=== PATIENT | female | born 1990 | race Caucasian/White ===

== ENCOUNTER 2017-09-10 12:00 | Emergency (ER) | payer OTHER ==
[~2017-09-10] VITALS: Ht 152.4 cm; Wt 47.0 kg
[~2017-09-10 12:00] MED LIST: BCPILLS PO
[2017-09-10 12:18] VITALS: TEMP 36.9
[2017-09-10] MEDS ORDERED: PRENTAB26 PO (13:29)
[2017-09-10 13:57] LABS: BASO % 0.3 %; BASO ABS # 0.02 K/uL (0-0.2); COMPLETE YES; EOS % 0.3 %; HEMATOCRIT 36.4 % (37-47); IG% 0.3 %; LYMPH % 26.7 %; LYMPH ABS # 1.77 K/uL (1.2-3.4); MEAN CELL VOLUME 87.7 fL (80-100); MEAN CORPUSCULAR HEMOGLOBIN 29.4 pg (25-34); MEAN CORPUSCULAR HGB CONC 33.5 g/dl (32-36); MEAN PLATELET VOLUME 10.4 fL (7.4-10.4); MONO % 10.3 %; NEUT % 62.1 %; PLATELET COUNT 163 K/uL (130-400); RED BLOOD COUNT 4.15 M/uL (4.2-5.4); WHITE BLOOD COUNT 6.63 K/uL (4.8-10.8)
--- NOTE | 2017-09-10 14:09 | EMERGENCY ROOM VISIT NOTE ---
ED Visit Note First contact with patient: 13:00 CHIEF COMPLAINT: Vaginal bleeding HISTORY OF PRESENT ILLNESS: This 27-year-old female presents to the emergency Department with complaints of vaginal bleeding and cramping. She reports that she is currently 6 weeks . She began having vaginal bleeding last night and has some lower abdominal cramping and some low back pain. She does not feel dizzy, weak, or faint. There has been no sweating or loss of consciousness. She denies trauma to the abdomen, recent illnesses, or fever. She is . She does report that she had bleeding with her first as well, and they did not ever find out why. She denies any headaches, dizziness or passing out, chest pain, shortness of breath, dysuria, diarrhea, or rash. REVIEW OF SYSTEMS: A complete 10 point review of systems was reviewed with the patient with pertinent positives and negatives as per history of present illness. All else were negative. PMH: The patient is healthy; there is no significant medical or surgical history. SOCIAL HISTORY: Patient lives at home. PHYSICAL EXAM: Vital Signs: Reviewed Nurse's notes. CONSTITUTIONAL: No acute distress. Well appearing and well nourished. Alert and oriented X 4 with normal affect. HEENT: Normocephalic, atraumatic. Pupils equal, round and reactive to light, EOMI. TMs normal. Pharynx normal. NECK: Supple, full active range of motion without discomfort. RESPIRATORY: Clear to auscultation bilaterally with no wheezing, crackles, rhonchi or stridor. Equal expansion bilaterally. CARDIOVASCULAR: Regular rate and rhythm with no murmurs, rubs or gallops. Normal peripheral perfusion. No edema. GASTROINTESTINAL: Soft, nontender, nondistended. Bowel sounds present in all quadrants. GENITOURINARY/PELVIC EXAM: VULVA: No ulcers, vesicles or atrophy. VAGINA: Clear discharge, no foul odor, scant light brown/red discharge. CERVIX: Closed , nontender, no cervical motion tenderness, no retained clot or tissue within the os. UTERUS: Normal size, nontender. ADNEXA: No masses or tenderness. A nurse was present as a contractor field hauling during the examination. MUSCULOSKELETAL: Full range of motion of all joints without discomfort. INTEGUMENTARY: No rash or other significant dermatologic conditions noted. NEUROLOGIC: Cranial nerves II-XII grossly intact. No focal neurologic deficits noted. IMAGING: TRANSVAGINAL CLINICAL HISTORY: 6 weeks with vaginal bleeding and cramping. COMPARISON STUDY: No previous studies for comparison. TECHNIQUE: Transabdominal and transvaginal sonography of the pelvis was performed. FINDINGS: Intrauterine gestational sac is noted. This contains a yolk sac that measures 4 mm in size. A pole is noted with a crown rump length of 0.41 cm which corresponds to an estimated gestational age of 6 weeks and 1 day. Cardiac activity is noted within the pole with heart rate of 105 bpm. This is within normal limits given gestational age. The right ovary measures 2.5 x 1.8 x 2.6 cm and contains a 2 cm hypoechoic lesion which favors a corpus luteal cyst. The left ovary is normal. IMPRESSION: 1. Single viable intrauterine gestation with estimated gestational age of 6 weeks and 1 day. Normal heart rate of 105 bpm. 2. Right ovarian corpus luteal cyst. EMERGENCY DEPARTMENT COURSE: I examined the patient. Differential diagnosis includes threatened miscarriage, demise, ovarian torsion, ectopic , among others. Pelvic ultrasound shows single viable intrauterine 6 weeks 1 day. CBC shows no anemia. Beta Quant is consistent with dates. She is Rh+. Pelvic exam reveals a closed cervical os with no tenderness. Patient was educated on concern for possible threatened miscarriage , she was instructed to follow very closely with her OB provider and to have a repeat beta hCG quantitative test done in 2 days. She was also educated on symptoms of a progressing miscarriage, and given strict return precautions for symptoms that should prompt her to return immediately to the emergency department, she verbalized understanding. Patient was discharged home in stable condition and ambulatory. Patient was discussed with Dr. Bennett, who agrees with my assessment and plan. Problem List Medical Problems: (1) Acute bronchitis Status: Resolved (2) Ectopic Status: Resolved (3) Holladay Teeth Removal Status: Resolved Current/Historical Medications Scheduled Multivit/Min/Iron/Fol Ac/Pren ( Vitamin), 1 TAB PO QAM Allergies Coded Allergies: No Known Allergies (Unverified , 09/10/17) Vital Signs Date Time Temp Pulse Resp B/P (MAP) Pulse Ox O2 Delivery O2 Flow Rate FiO2 09/10/17 17:05 76 16 107/68 100 Room Air 09/10/17 15:20 75 18 97/62 100 Room Air 09/10/17 14:40 89 16 107/62 100 Room Air 12/7/17 12:18 36.9 84 18 118/79 100 Room Air Laboratory Results 09/10/17 13:40 Red Blood Count 4.15, Mean Corpuscular Volume 87.7, Mean Corpuscular Hemoglobin 29.4, Mean Corpuscular Hemoglobin Concent 33.5, Mean Platelet Volume 10.4, Neutrophils (%) (Auto) 62.1, Lymphocytes (%) (Auto) 26.7, Monocytes (%) (Auto) 10.3, Eosinophils (%) (Auto) 0.3, Basophils (%) (Auto) 0.3, Neutrophils # (Auto ) 4.12, Lymphocytes # (Auto) 1.77, Monocytes # (Auto) 0.68, Eosinophils # (Auto ) 0.02, Basophils # (Auto) 0.02 09/10/17 13:40 Test 09/10/17 13:40 09/10/17 13:45 White Blood Count 6.63 K/uL (4.8-10.8) Red Blood Count 4.15 M/uL (4.2-5.4) Hemoglobin 12.2 g/dL (12.0-16.0) Hematocrit 36.4 % (37-47) Mean Corpuscular Volume 87.7 fL (80-100) Mean Corpuscular Hemoglobin 29.4 pg (25-34) Mean Corpuscular Hemoglobin Concent 33.5 g/dl (32-36) Platelet Count 163 K/uL (130-400) Mean Platelet Volume 10.4 fL (7.4-10.4) Neutrophils (%) (Auto) 62.1 % Lymphocytes (%) (Auto) 26.7 % Monocytes (%) (Auto) 10.3 % Eosinophils (%) (Auto) 0.3 % Basophils (%) (Auto) 0.3 % Neutrophils # (Auto) 4.12 K/uL (1.4-6.5) Lymphocytes # (Auto) 1.77 K/uL (1.2-3.4) Monocytes # (Auto) 0.68 K/uL (0.11-0.59) Eosinophils # (Auto) 0.02 K/uL (0-0.5) Basophils # (Auto) 0.02 K/uL (0-0.2) RDW Standard Deviation 39.1 fL (36.4-46.3) RDW Coefficient of Variation 12.2 % (11.5-14.5) Immature Granulocyte % (Auto) 0.3 % Immature Granulocyte # (Auto) 0.02 K/uL (0.00-0.02) Anion Gap 7.0 mmol/L (3-11) Est Creatinine Clear Calc Drug Dose 100.4 ml/min Estimated GFR () 145.0 Estimated GFR (Non- 125.1 BUN/Creatinine Ratio 11.5 (10-20) Calcium Level 9.0 mg/dl (8.5-10.1) Human Chorionic Gonadotropin, Quant 86459 mIU/mL Urine Color YELLOW Urine Appearance CLOUDY (CLEAR) Urine pH 7.5 (4.5-7.5) Urine Specific [place] 1.019 (1.000-1.030) Urine Protein NEG (NEG) Urine Glucose (UA) NEG (NEG) Urine Ketones TRACE (NEG) Urine Occult Blood TRACE (NEG) Urine Nitrite NEG (NEG) Urine Bilirubin NEG (NEG) Urine Urobilinogen NEG (NEG) Urine Leukocyte Esterase SMALL (NEG) Urine WBC (Auto) 1-5 /hpf (0-5) Urine RBC (Auto) 0-4 /hpf (0-4) Urine Hyaline Casts (Auto) 1-5 /lpf (0-5) Urine Epithelial Cells (Auto) >30 /lpf (0-5) Urine Bacteria (Auto) 1+ (NEG) Departure Information Impression Primary Impression: Threatened miscarriage in early Dispostion Home / Self-Care Condition GOOD Referrals No Doctor, Assigned (PCP) Patient Instructions ED Miscarriage Asiya, [facility] Additional Instructions You should follow-up with your OB provider in the next 48 hours to have your hCG Quant level (blood test) rechecked. Please go to the emergency department to have this blood test done if you are unable to get in with your OB office. Any bleeding and cramping symptoms in early is concerning for a possible miscarriage. If you begin to have heavier bleeding or passing large blood clots, this may indicate the your progressing toward a miscarriage. You may take Tylenol as needed for pain. Please return to the ER for any worsening symptoms, including severe pain, very heavy vaginal bleeding (soaking through more than >1 pad per hour), dizziness or passing out, fevers/chills/feeling ill, or any other concerns.
[2017-09-10 14:15] LABS: BUN/CREATININE RATIO 11.5 (10-20); CREATININE 0.61 mg/dl (0.60-1.20); POTASSIUM 3.8 mmol/L (3.5-5.1)
[2017-09-10 14:21] LABS: URINE APPEARANCE CLOUDY (CLEAR); URINE BILIRUBIN NEG (NEG); URINE COLOR YELLOW; URINE EPITHELIAL CELL AUTO >30 /lpf (0-5); URINE NITRITE NEG (NEG); URINE PH 7.5 (4.5-7.5); URINE SPECIFIC GRAVITY 1.019 (1.000-1.030); UROBILINOGEN NEG (NEG)
[2017-09-10 14:26] LABS: MANUAL MICROSCOPIC REQUIRED? NO; REVIEW REQ? NO
[2017-09-10 15:22] VITALS: Ht 152.4 cm; Wt 47.0 kg
--- NOTE | 2017-09-10 17:03 | DIAGNOSTIC IMAGING REPORT ---
TRANSVAGINAL CLINICAL HISTORY: 6 weeks with vaginal bleeding and cramping. COMPARISON STUDY: No previous studies for comparison. TECHNIQUE: Transabdominal and transvaginal sonography of the pelvis was performed. FINDINGS: Intrauterine gestational sac is noted. This contains a yolk sac that measures 4 mm in size. A pole is noted with a crown rump length of 0.41 cm which corresponds to an estimated gestational age of 6 weeks and 1 day. Cardiac activity is noted within the pole with heart rate of 105 bpm. This is within normal limits given gestational age. The right ovary measures 2.5 x 1.8 x 2.6 cm and contains a 2 cm hypoechoic lesion which favors a corpus luteal cyst. The left ovary is normal. IMPRESSION: 1. Single viable intrauterine gestation with estimated gestational age of 6 weeks and 1 day. Normal heart rate of 105 bpm. 2. Right ovarian corpus luteal cyst. Electronically signed by: Azeem Belle M.D. 09/10/2017 5:01 PM Dictated Date/Time: 09/10/2017 4:56 PM
[2017-09-10 18:05] VITALS: BP 97/66; PULSE 46; O2SAT 99
== END 2017-09-10 18:06 | disposition home or self-care (01) ==
LOC: C.EDB 12:02
DX: O20.0 Threatened abortion (principal); Z3A.01 Less than 8 weeks gestation of pregnancy

== ENCOUNTER 2025-08-20 08:01 | Inpatient (IN) ==
[2025-08-20] MEDS ORDERED: ACETAMINOPHEN 325 MG TAB PO PRN ×2 (08:14→12:28)
[2025-08-20] MEDS ORDERED: CALCIUM CARBONATE 500 MG CHEWABLE TAB PO PRN (08:14)
[2025-08-20] MEDS ORDERED: LIDOCAINE 1% LOCAL 20 ML VIAL INFIL PRN (08:14)
[2025-08-20] MEDS: LACTATED RINGER'S 1,000 ML IV PRN (08:15)
--- NOTE | 2025-08-20 08:21 | History & Physical Report ---
Date of Service August 20, 2025 Assessment & Plan (1) Uterine contractions at greater than 20 weeks of gestation: Plan: 35-year-old -0-1-3 at 38 weeks of gestation presenting today with painful uterine contractions and cervical change, requesting epidural for pain, Vital signs stable afebrile, GBS negative, No medical problems, Plan to admit, monitor, labs, IV fluids, epidural for pain, continue to monitor closely, All questions were answered. (2) with 38 completed weeks gestation: History of Present Illness Primary Care Provider: NO PCP Patient is an 35-year-old -0-1-3 at 38 weeks of gestation who has been feeling contractions all night long, unable to sleep, started to get more regular and painful after 5 AM. she is requesting epidural for pain. She denies leakage of fluid or vaginal bleeding. She reports good movements. Her has been uncomplicated, GBS is negative. Her cervix was 2 cm, 30% and -2 in the office 3 days ago. She denies any medical problems. She had ectopic in 2010 when she had surgery and blood transfusion, they were able to save her tube. History of IUGR with her first baby, she had a growth scan at 30 weeks this and it was normal. Her other 2 babies were 6+ pounds. Allergies Allergy/AdvReac Type Severity Reaction Status Date / Time No Known Allergies Allergy Unverified 04/29/24 14:42 Home Medications Medication Instructions Recorded Confirmed Type Multivit/Min/Iron/Fol Ac/Pren 1 tab PO QAM ##0 09/10/17 History ( Vitamin) L norgest/E estradiol-E estrad 1 tab PO DAILY 11/29/19 11/29/19 History 0.15 mg-30 mcg (84)/10 mcg(7) tabs,3mos (Seasonique) Patient History Surgical History History of wisdom tooth extraction Family History Other Breast cancer Social History Smoking Status: Never smoker Hx Alcohol Use: Yes Alcohol type: wine Hx Substance Use: No Sunscreen Use: Yes 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
[2025-08-20 08:41] LABS: Hematocrit (blood only) 35.0 % (37.0-47.0); Hemoglobin 11.7 g/dL (12.0-16.0); Mean Corpuscular Hemoglobin 28.3 pg (25.0-34.0); Mean Corpuscular Volume 84.7 fL (80.0-100.0); Platelet Count 175 K/uL (130-400); RDW Standard Deviation 38.8 fL (36.4-46.3); Red Blood Count 4.13 M/uL (4.20-5.40); White Blood Count 9.12 K/ul (4.8-10.8)
--- NOTE | 2025-08-20 08:48 | Anesthesiology Consultation ---
Date of Service August 20, 2025 Assessment & Plan (1) Encounter for pre-operative examination: Chart Review Chart Review: Acceptable Risk for Labor Epidural History Height/Weight Height: 5 ft Weight: 62.596 kg Allergies Allergy/AdvReac Type Severity Reaction Status Date / Time No Known Allergies Allergy Unverified 04/29/24 14:42 Medications Home Medications Medication Instructions Recorded Confirmed Last Taken Multivit/Min/Iron/Fol Ac/Pren 1 tab PO QAM ##0 09/10/17 Unknown ( Vitamin) Past Medical History Medical History (Updated 08/20/25 @ 08:49 by Tj Hennessy MD) No pertinent past medical history Past Family History Family History Other Breast cancer Past Surgical History Surgical History History of wisdom tooth extraction Social History Smoking Status: Never smoker Do You Dip or Chew Tobacco: No Hx Alcohol Use: No Alcohol type: wine Alcohol Intake Frequency Comment: pre- pt reports drinking alcohol occasionally on a social basis Hx Substance Use: No substance use type: does not use Physical Exam Vital Signs Last Vital Signs Temp 36.6 C 08/20/25 08:23 Pulse 72 08/20/25 08:44 Resp 16 08/20/25 08:23 BP 149/70 H 08/20/25 08:23 Pulse Ox 100 08/20/25 08:44 O2 Del Method Room Air 08/20/25 08:23 Testing Laboratory Results 08/20/25 08:27
[2025-08-20 08:59] LABS: Alanine Aminotransferase 10.0 U/L (7-52); Albumin Globulin Ratio 1.1 (0.9-2); Albumin Level 3.3 gm/dl (3.4-5.0); Alkaline Phosphatase 143.0 U/L (34-104); Anion Gap 6.0 (3-11); Bilirubin,Total 0.4 mg/dl (0.2-1.0); Blood Urea Nitrogen 7.0 mg/dl (6-23); Calcium 8.9 mg/dl (8.6-10.3); Carbon Dioxide 23.0 mmol/L (21-32); Chloride 106.0 mmol/L (98-107); Creatinine Clr Calc Pharmacy 117.0 ml/min; Globulin 2.9 gm/dl (2.5-4.0); Glucose 92.0 mg/dl (70-99(Fasting)); Potassium 4.3 mmol/L (3.5-5.1); Sodium 135.0 mmol/L (136-145); Total Protein 6.2 gm/dl (6.0-8.3)
[2025-08-20] MEDS: LIDOCAINE 2%/EPINEPHRINE 1:200,000 20 ML PF ONE (09:25)
[2025-08-20] MEDS: BUPIVACAINE 0.25% PF 30 ML VIAL ONE (09:25)
[2025-08-20] MEDS ORDERED: NALOXONE HCL 0.4 MG/1 ML VIAL/CARP IV PRN (09:29)
[2025-08-20] MEDS ORDERED: fentANYL 2 MCG/ML BUPIVacaine 0.125%-NSS 100ML BAG EPI PRN (09:29)
[2025-08-20] MEDS ORDERED: SODIUM CHLORIDE 0.9% PF INJ 10 ML VIAL EPI PRN (09:29)
[2025-08-20] MEDS ORDERED: ROPIVACAINE 0.5% PF 5 MG/ML 20 ML VIAL EPI PRN (09:29)
[2025-08-20] MEDS ORDERED: LIDOCAINE 2% MPF LOCAL 5 ML VIAL EPI PRN (09:29)
[2025-08-20] MEDS ORDERED: NALOXONE HCL 1 MG in SODIUM CHLORIDE 0.9% 1,000 ML IV PRN (09:29)
[2025-08-20] MEDS ORDERED: BUPIVACAINE 0.25% PF 30 ML VIAL EPI PRN (09:29)
[2025-08-20] MEDS: fentANYL 2 MCG/ML BUPIVacaine 0.125%-NSS 100ML BAG ONE (09:30)
[2025-08-20] MEDS: BUPIVACAINE 0.25% PF 30 ML VIAL EPI STA (09:36)
[2025-08-20] MEDS: SODIUM CHLORIDE 0.9% PF INJ 10 ML VIAL EPI STA (09:37)
[2025-08-20] MEDS: LIDOCAINE 2%/EPINEPHRINE 1:200,000 20 ML PF EPI STA (09:37)
[2025-08-20] MEDS: SODIUM CHLORIDE 0.9% PF INJ 10 ML VIAL ONE (10:16)
[2025-08-20] MEDS: ONDANSETRON INJ 2 MG/ML 2 ML VIAL IV PRN (11:32)
[2025-08-20] MEDS ORDERED: BENZOCAINE 20% SPRY 85 APPLN/85 GM CAN EXT PRN (12:28)
[2025-08-20] MEDS ORDERED: HYDROCORTISONE ACETATE 25 MG SUPP PR PRN (12:28)
[2025-08-20] MEDS ORDERED: OXYTOCIN 30 UNITS/NSS 30 UNITS/500 ML BAG IV PRN (12:28)
--- NOTE | 2025-08-20 12:32 | Delivery Summary ---
Vaginal Delivery Summary Date of Service August 20, 2025 Vaginal Delivery Summary Patient was found to be fully dilated and desired to push. She pushed with 2 contractions and delivered the head and then shoulders spontaneously without any traction. The baby was handed off to the mother. The cord was clampedx2 and cut at 1 minute. The vagina and perineum were checked and found to be intact, no laceration. The placenta was delivered spontaneously as intact and complete. The uterus was explored and found to be empty. QBL was 50 ml. The fundus was firm. The baby was a viable female , Apgars 9/9, the weight is pending The mother and the baby tolerated the procedure well. No complications happened and I was present during whole procedure.
[2025-08-20] MEDS: OXYTOCIN 30 UNITS/NSS 30 UNITS/500 ML BAG IV PRN (13:01)
--- NOTE | 2025-08-20 13:33 | Anesthesia Procedure Note ---
Date of Service August 20, 2025 Anesthesia Post Epidural Note Vital Signs Vital Signs: Temp Pulse Resp BP Pulse Ox O2 Del Method 36.6 C 68 18 108/59 L 98 Room Air 08/20/25 13:15 08/20/25 13:30 08/20/25 13:15 08/20/25 13:30 08/20/25 13:00 08/20/25 08:23 Pain Intensity Abdomen: Pain Intensity: 1 Notes Mental Status: alert / awake / arousable and participated in evaluation Nausea / Vomiting: adequately controlled Pain: adequately controlled Airway Patency, RR, SpO2: stable & adequate BP & HR: stable & adequate Hydration State: stable & adequate Neuraxial Anesthesia: was administered and sensory block is resolving Anesthetic Complications: no major complications apparent Epidural: Removed without complications and With tip intact
[2025-08-20] MEDS: DIPHTHER/TETAN/PERTUS Vaccine (Tdap, Adol/Adult) 0.5mL IM ONE (14:58)
[2025-08-20] MEDS: MEASLES, MUMPS & RUBELLA VIRUS VACCINE (MMR) 0.5ML VIAL SQ ONE (14:58)
[2025-08-20] MEDS: METHYLERGONOVINE MALEATE 0.2 MG TAB PO SCH (15:05)
[2025-08-20] MEDS: IBUPROFEN 600 MG TAB PO PRN (15:14)
[2025-08-20] MEDS: DOCUSATE SODIUM 100 MG CAP PO SCH (20:13)
[2025-08-20 23:15] VITALS: RESP 16
[2025-08-21 06:35] LABS: Hematocrit (blood only) 31.9 % (37.0-47.0); Hemoglobin 10.9 g/dL (12.0-16.0); Mean Corpuscular Hemoglobin 28.9 pg (25.0-34.0); Mean Corpuscular Volume 84.6 fL (80.0-100.0); Platelet Count 171 K/uL (130-400); RDW Standard Deviation 39.3 fL (36.4-46.3); Red Blood Count 3.77 M/uL (4.20-5.40); White Blood Count 10.97 K/ul (4.8-10.8)
[2025-08-21] MEDS: PRENATAL VITAMIN 1 TAB PO SCH (07:37)
[2025-08-21] MEDS: FERROUS SULFATE 325 MG TAB PO SCH (07:41)
--- NOTE | 2025-08-21 08:42 | Obstetrical Progress Note ---
Date of Service August 21, 2025 Subjective Ambulation: ambulating normally Voiding: no voiding problems Passing Gas:: Yes Diet Tolerance:: regular diet Lochia:: Small Feeding Type:: breast feeding Current Pain Level(1-10): 0 doing well. plans for d/c. Physical Exam Constitutional WD/WN, vitals as above Gastrointestinal (Abdomen) Inspection/Auscultation: abdomen normal to inspection Musculoskeletal Extremities: extremities normal to inspection Skin no rashes, warm and dry Neurologic patellar DTR's 2+ bilat, sensation intact Psychiatric A+Ox3, euthymic affect Results & Data Vital Signs (Past 12 Hours) Vital Signs Temp Pulse Resp BP Pulse Ox O2 Del Method 08/21/25 07:35 37.1 C 79 16 108/73 97 Room Air 08/21/25 03:21 36.7 C 68 16 104/69 96 Room Air 08/20/25 23:13 36.6 C 68 16 103/65 97 Room Air Laboratory Results 08/20/25 08/21/25 08:27 06:07 WBC 9.12 10.97 H RBC 4.13 L 3.77 L Hgb 11.7 L 10.9 L Hct 35.0 L 31.9 L MCV 84.7 84.6 MCH 28.3 28.9 MCHC 33.4 34.2 RDW Std Deviation 38.8 39.3 RDW Coeff of Brennen 12.7 12.9 Plt Count 175 171 MPV 10.6 11.0 Sodium 135 L Potassium 4.3 Chloride 106 Carbon Dioxide 23 Anion Gap 6 BUN 7 Creatinine 0.56 L Est Cr Clr Drug Dosing 117.0 eGFR 122.74 BUN/Creatinine Ratio 12.5 Glucose 92 Calcium 8.9 Total Bilirubin 0.4 AST 17 ALT 10 Alkaline Phosphatase 143 H Total Protein 6.2 Albumin 3.3 L Globulin 2.9 Albumin/Globulin Ratio 1.1 Treponema pallidum Ab Negative
[2025-08-21 12:18] VITALS: BP 117/77; PULSE 82; TEMP 97.7; O2SAT 93
== END 2025-08-21 12:56 | disposition home or self-care (01) | DRG 807 ==
LOC: OPB 08:01 → 4S1 08:05 → 4E2 14:50